=== PATIENT | female | born 1995 | race Two or more races ===

== ENCOUNTER 2024-03-24 14:12 | Outpatient (CLI) | payer OTHER | END 2024-03-24 14:15 | disposition home or self-care (01) | LOC: PRENATAL 14:12 | PROVIDERS: ATTEND Obstetrics & Gynecology Maternal & Fetal Medicine | DX: O35.9XX0 Maternal care for (suspected) fetal abnormality and damage, unspecified, not applicable or unspecified (principal); O35.3XX0 Maternal care for (suspected) damage to fetus from viral disease in mother, not applicable or unspecified; O44.02 Complete placenta previa NOS or without hemorrhage, second trimester; O30.92 Multiple gestation, unspecified, second trimester; Z14.8 Genetic carrier of other disease; Z3A.22 22 weeks gestation of pregnancy ==

== ENCOUNTER 2024-05-01 09:01 | Outpatient (CLI) | payer OTHER | END 2024-05-01 09:03 | disposition home or self-care (01) | LOC: PRENATAL 09:01 | PROVIDERS: ATTEND Obstetrics & Gynecology Maternal & Fetal Medicine | DX: O26.849 Uterine size-date discrepancy, unspecified trimester (principal); O30.90 Multiple gestation, unspecified, unspecified trimester; Z14.8 Genetic carrier of other disease; O43.90 Unspecified placental disorder, unspecified trimester; O99.019 Anemia complicating pregnancy, unspecified trimester; Z3A.28 28 weeks gestation of pregnancy ==

== ENCOUNTER 2024-05-26 11:12 | Outpatient (CLI) | payer OTHER | END 2024-05-26 11:14 | disposition home or self-care (01) | LOC: PRENATAL 11:12 | PROVIDERS: ATTEND Obstetrics & Gynecology Maternal & Fetal Medicine | DX: O26.849 Uterine size-date discrepancy, unspecified trimester (principal); O36.8199 Decreased fetal movements, unspecified trimester, other fetus; O30.90 Multiple gestation, unspecified, unspecified trimester; Z14.8 Genetic carrier of other disease; O99.019 Anemia complicating pregnancy, unspecified trimester; Z3A.31 31 weeks gestation of pregnancy ==

== ENCOUNTER 2024-06-23 08:46 | Outpatient (CLI) | payer OTHER | END 2024-06-23 08:47 | disposition home or self-care (01) | LOC: PRENATAL 08:46 | PROVIDERS: ATTEND Obstetrics & Gynecology Maternal & Fetal Medicine | DX: O26.849 Uterine size-date discrepancy, unspecified trimester (principal); O36.8199 Decreased fetal movements, unspecified trimester, other fetus; O30.90 Multiple gestation, unspecified, unspecified trimester; Z14.8 Genetic carrier of other disease; O99.019 Anemia complicating pregnancy, unspecified trimester; Z3A.35 35 weeks gestation of pregnancy ==